=== PATIENT | male | born 1980 | race Caucasian/White ===

== ENCOUNTER 2022-08-09 20:40 | Emergency (ER) | payer BC ==
--- OUTSIDE RECORDS SUMMARY | 2022-08-09 20:54 | XMS REPORT | Continuity of Care Document ---
:1980 Author Organization [facility] t Address [address] [place] [address] Care Team Providers Name Role Phone Magda Chase Attending Clinician Unavailable Payers Payer Name Policy Type Policy Number Effective Date Expiration Date S ource [employer] [id number] 2020 00:00:00 Problems This patient has no known problems. Allergies, Adverse Reactions, Alerts This patient has no known allergies or adverse reactions. Social History Social Habit Start Date Stop Date Quantity Comments Source Sex Assigned At [address] [facility] Medications This patient has no known medications. Immunizations Ordered Immunization Filled Immunization Date Status Commen ts Source Name Name Covid-19 Vaccine 2020-06-[address] [facility] MRNA (PF) 12yr+ 00:00:00 Medical C enter (Pfizer/BioNTech)(IM M601) Covid-19 Vaccine 2020-05-[address] [facility] MRNA (PF) 12yr+ 00:00:00 Medical C enter (Pfizer/BioNTech)(IM M601) Procedures This patient has no known procedures. Plan of Care Planned Activity Planned Date Details Comments Source Future Scheduled 2025-10-[address] [facility] 00:00:00 (procedure) [code = [facility] [id number]] Future Scheduled 2022-06-[address] [facility] 00:00:00 (12+) [code = [facility] DEPRESSION SCREENING (12+)] Future Scheduled 2022-02-[address] [facility] 00:00:00 (#1) [code = Medical Center INFLUENZA VACCINE (#1)] Future Scheduled 2020-11-06 COVID-19 VACCINE (3 - [facility] 00:[facility]:00 Booster for Pfizer Medical C enter series) [code = COVID-19 VACCINE (3 - Booster for Pfizer series)] Future Scheduled 2000 DTAP/TDAP/TD VACCINES [facility] 00:00:00 (1 - Tdap) [code = Medical C enter DTAP/TDAP/TD VACCINES (1 - Tdap)] Future Scheduled 1999 HEPATITIS C SCREENING [facility] 00:00:00 [code = HEPATITIS C Medical Center SCREENING] Future Scheduled [address] [facility] Test 00:00:00 Counseling and Medical Cent[facility] r Screening (12+) [code = Tobacco Cessation Counseling and Screening (12+)] Encounters Start End Encounter Admission Attending Care Care Encounter Source Date/Time Date/Time Type Type Clinicians Facility Department ID 2021-06-29 Outpatient [facility] [id number] Common 13:10:34 Magda [id number] [facility] 2021-06-21 2021-06-21 Outpatient [facility] [id number] 13:34:07 13:34:07 [facility] 2020-06-08 2020-06-08 Outpatient [facility] [id number] [facility] 00:00:00 00:00:00 2020-05-20 2020-05-20 Outpatient [facility] [id number] [facility] 00:00:00 00:00:00 Results Test Description Test Time Test Comments Results Result Comments Source SARS-COV2/RT-PCR ([facility]) 2021-06-21 22:56:06 Test Item Value Reference Range Interpretation Comme nts SARS-COV2/RT-PCR (test code = 9206931) Negative Not Detected, N egative, See external report for linked test SARS-COV-2 PERFORMING LAB (test code = [facility] [id number]) Negative result for this test determines that SARS-CoV-2 RNA was not present in the specimen above the Limit of Detection (LOD). However, Negative results do not preclude SARS-CoV-2 infection and should not be used as the sole basis for treatment or patient management decisions. Negative results must be combined with clinical observations, patient history, and epidemiological information. A false negative result may occur if a specimen is improperly collected, transported or handled. A false negative result should be considered if patient's recent exposures or clinical presentation indicate that COVID-19 (SARS-CoV-2) is likely and diagnostic tests for other causes of illness are negative. Re-testing should be considered in cases of suspected false negatives.The limit of detection for this assay is 800 copies/mL.This SARS CoV-2 test is a real-time RT-PCR test intended for the qualitative detection of nucleic acid from SARS-CoV-2 in a nasopharyngeal swab specimen collected from individuals suspected of COVID-19 by their healthcare provider.This test has not been Food and Drug Administration (FDA) cleared or approved. This is a modified version of an approved Emergency Use Authorization (EUA) and is in the process of review by the FDA. Once authorized by the FDA, the issued EUA will be effective until the declaration that circumstances exist justifying the authorization of the emergency use ofin vitro diagnostic tests for detection and/or diagnosis of COVID-19 is terminated under Section 564(b)(2) of the Act or the EUA is revoked under Section 564(g) of the Act.Fact Sheet for Healthcare Prov iders:https://www.[employer]/sites/default/files/product/documents/Fact_Sheet_HC _Gwoklmnzb_Xeiw_TGLG-MnF-8.pdfFact Sheet for Healthcare Patients:https://www.[employer]/sites/default/files/product/docume nts/Dqfy_Sxeyg_Xmpoipzw_Baqp_NWLH-MeN-6.pdfPerforming Laboratory:[facility] [facility], [place] [address]LWPH-BFW9/RT-PCR ([facility])2020-05-13 23:42:00 Test Item Value Reference Range Interpretation Comments SARS-COV2/RT-PCR (test Negative Not Detected, Negative, code = [id number]) See external report for linked test SARS-COV-2 PERFORMING LAB [facility] (test code = [id number]) Negative result for this test determines that SARS-CoV-2 RNA was not present in the specimen above the Limit of Detection (LOD). However, Negative results do not preclude SARS-CoV-2 infection and should not be used as the sole basis for treatment or patient management decisions. Negative results must be combined with clinical observations, patient history, and epidemiological information. A false negative result may occur if a specimen is improperly collected, transported or handled. A false negative result should be considered if patient's recent exposures or clinical presentation indicate that COVID-19 (SARS-CoV-2) is likely and diagnostic tests for other causes of illness are negative. Re-testing should be considered in cases of suspected false negatives.The limit of detection for this assay is 100 copies/mL.This SARS CoV-2 test is a real-time RT-PCR test intended for the qualitative detection of nucleic acid from SARS-CoV-2 in a nasopharyngeal swab specimen collected from individuals suspected of COVID-19 by their healthcare provider.This test has not been Food and Drug Administration (FDA) cleared or approved. This is a modified version of an approved Emergency Use Authorization (EUA) and is in the process of review by the FDA. Once authorized by the FDA, the issued EUA will be effective until the declaration that circumstances exist justifying the authorization of the emergency use ofin vitro diagnostic tests for detection and/or diagnosis of COVID-19 is terminated under Section 564(b)(2) of the Act or the EUA is revoked under Section 564(g) of the Act.Testing was performed using the Vides SARS-CoV-2 assay.Fact Sheet for Healthcare Providers:https://www.molecular.vides/michael/RT_SAR S-JnK-0_XUC_Upll_Phkfw_62-828601.pdfFact Sheet for Healthcare Patients:https://www.molecular.vides/s al/CD_QXMK-RvJ-9_Uhvpmiv_Etnv_Ciirv_XE_44-166428A3.pdfPerforming Laboratory:[facility] [place] [address]?
[2022-08-09] MEDS ORDERED: ONDANSETRON 4 MG/2 ML VIAL ONE (22:59)
[2022-08-09] MEDS ORDERED: NA CHLORIDE 0.9% 1,000 ML ONE (22:59)
[2022-08-09 23:09] LABS: Urine Blood Negative (Negative); Urine Glucose Negative (Negative); Urine Protein Negative (Negative); Urine Specific Gravity >=1.030 (1.005-1.030)
[2022-08-09 23:21] LABS: Absolute Lymphocytes (CBC) 2.5 K/uL (0.7-4.9); Hematocrit 43.4 % (39.6-49.0); Lymphocytes % 29.2 % (15.3-44.8); MCV 81.9 fL (80-100); MPV 8.6 fL (7.6-11.3)
[2022-08-09 23:23] LABS: Urine Bacteria None Seen /HPF (<20); Urine Mucus Slight /HPF (None Seen); Urine RBC None Seen /HPF (None Seen)
[2022-08-09 23:36] LABS: Albumin 4.4 g/dL (3.4-5.0); Bilirubin Total 0.7 mg/dL (0.2-1.0); Potassium 3.8 mmol/L (3.5-5.1); Protein, Total 7.8 g/dL (6.4-8.2)
--- NOTE | 2022-08-10 14:01 | RAD REPORT ---
EXAM DESCRIPTION: CT - Abdomen Pelvis W Contrast - 08/10/2022 2:18 am CLINICAL HISTORY: The patient is 42 years old and is Male; rectal pain [facility] MAIN TECHNIQUE: Axial computed tomography images of the abdomen and pelvis with intravenous contrast. S agittal and coronal reformatted images were created and reviewed. This CT exam was performed using one or more of the following dose reduction techniques: automated exposure control, adjustment of t he mA and/or kV according to patient size, and/or use of iterative reconstruction technique. COMPARISON: 12/10/2015 CT abdomen pelvis with contrast (images only, report unavailable) FINDINGS: LUNG BASES: Unremarkable. No mass. No consolidation. ABDOMEN: LIVER: Indeterminate 1.7 cm low-attenuation focus in the posterior dome of the right hepatic lobe. No additional focal hepatic parenchymal abnormality. GALLBLADDER AND BILE DUCTS: Unremarkable. No calcified stones. No ductal dilation. PANCREAS: Unremarkable. No mass. No ductal dilation. SPLEEN: Incidental splenule noted. No splenomegaly. ADRENALS: Unremarkable. No mass. KIDNEYS AND URETERS: Unremarkable. No solid mass. No hydronephrosis. STOMACH AND BOWEL: Oral contrast demonstrated within the distal small bowel and ascending through proximal descending colon. No abnormal bowel dilatation or mucosal thickening. PELVIS: APPENDIX: No findings to suggest acute appendicitis. BLADDER: Unremarkable. No mass. REPRODUCTIVE: Unremarkable as visualized. ABDOMEN and PELVIS: INTRAPERITONEAL SPACE: Unremarkable. No free air. No significant fluid collection. BONES/JOINTS: No acute fracture. No dislocation. SOFT TISSUES: Unremarkable. No abnormal perineal masses, fluid collections, or obvious inflammatory changes, though ther e is a subtle serpiginous soft tissue attenuating focus along the left anterolateral margin of the an us (axial images 91 and 92/103), which appears similar on 2016 reference exam. VASCULATURE: Unremarkable. No abdominal aortic aneurysm. LYMPH NODES: Unremarkable. No enlarged lymph nodes. IMPRESSION: 1. No abnormal perineal masses, fluid collections, or obvious inflammatory changes, th ough there is a subtle serpiginous soft tissue attenuating focus along the left anterolateral margin of the anus (axial images 91 and 92/103), which appears similar on 2016 reference exam. Appearance is nonspecific and could reflect an anal fissure or fistula. Clinical correlation recommended. 2. Otherwise, no acute abnormality of the abdomen or pelvis. 3. Indeterminate 1.7 cm low-attenuation focus in the posterior dome of the right hepatic lobe, not readily appreciated on 2016 exam. Although this may reflect a hepatic hemangioma, further characteriz ation by nonemergent hepatic mass protocol MRI or CT recommended. Electronically signed by: Randy Lyn MD 08/10/2022 1:56 AM FAMILY DAY CARE PROVIDER Due to temporary technical issues with the PACS/Fluency reporting system, reports are being signed by the in house radiologists without review as a courtesy to insure prompt reporting. The interpreting radiologist is fully responsible for the content of the report.
--- NOTE | 2022-08-25 15:06 | ER ---
Nurse's Notes [facility] Name: Dung Saravia Age: 42 yrs Sex: Male : 1980 Arrival Date: 08/09/2022 Time: 20:45 Bed 25 Private MD: Diagnosis: Anorectal fistula Presentation: 08/09 21:35 Chief complaint: Patient states: he is having pain and rectal bleeding for several bb months has used OTC medications with no relief. Coronavirus screen: At this time, the client does not indicate any symptoms associated with coronavirus-19. Ebola Screen: No symptoms or risks identified at this time. Initial Sepsis Screen: Does the patient meet any 2 criteria? No. Patient's initial sepsis screen is negative. Does the patient have a suspected source of infection? No. Patient's initial sepsis screen is negative. Risk Assessment: Do you want to hurt yourself or someone else? Patient reports no desire to harm self or others. Onset of symptoms was March 2022. 21:35 Method Of Arrival: Ambulatory bb 21:35 Acuity: SHABBIR 3 bb Triage Assessment: 21:36 General: Appears in no apparent distress. uncomfortable, Behavior is calm, cooperative. bb Pain: Complains of pain in rectum. Neuro: Level of Consciousness is awake, alert, obeys commands, Oriented to person, place, time, situation. Cardiovascular: Capillary refill < 3 seconds Patient's skin is warm and dry. Respiratory: Respiratory effort is unlabored. GI: Reports rectal bleeding. Derm: Skin is pink, warm \T\ dry. Musculoskeletal: Circulation, motion, and sensation intact. 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 - Social history:: Smoking status: Patient denies any tobacco usage or history of. Screenin/09 02:29 [facility] ED Fall Risk Assessment (Adult) Score/Fall Risk Level 0 - 2 = Low Risk. Abuse as6 screen: Denies threats or abuse. Denies injuries from another. Nutritional screening: No deficits noted. Tuberculosis screening: No symptoms or risk factors identified. Assessment: 02:31 General: pt even and steady gait at discharge, verbalized understanding on discharge as6 instructions . Vital Signs: 08/09 21:35 BP 124 / 89; Pulse 66; Resp 16 S; Temp 98.1(O); Pulse Ox 99% on R/A; Weight 77.56 kg bb (R); Height 5 ft. 10 in. (R); Pain 7/10; 22:30 BP 129 / 61; Pulse 65; Resp 18 S; Pulse Ox 100% on R/A; as6 08/10 00:00 BP 131 / 74; Pulse 81; Resp 16 S; Pulse Ox 99% on R/A; as6 01:45 BP 120 / 75; Pulse 68; Resp 18 S; Pulse Ox 100% on R/A; as6 08/09 21:35 Body Mass Index 24.54 (77.56 kg, 177.8 cm) bb 08/09 21:35 Pain Scale: Adult bb ED Course: 08/09 20:45 Patient arrived in ED. jj6 21:09 Clinton Kang MD is Attending Physician. bs3 21:09 Abraham Martel PA is PHCP. cp 21:12 Clinton Kang MD is Attending Physician. cp 21:36 Triage completed. bb 21:36 Arm band placed on Patient placed in an exam room, on a stretcher. bb 21:43 David Guardado, RN is Primary Nurse. as6 23:09 CBC with Diff Sent. bc6 23:09 CMP Sent. bc6 23:09 Lipase Sent. bc6 23:09 Urine Microscopic Only Sent. bc6 23:09 Inserted saline lock: 20 gauge in right antecubital area, using aseptic technique. bc6 08/10 01:38 CT Abd/Pelvis - PO and IV Contrast: give oral contrast In Process Unspecified. EDMS 02:15 Anson Yancey MD is Referral Physician. cp 02:29 Placed in gown. Bed in low position. Call light in reach. Side rails up X2. as6 02:30 No provider procedures requiring assistance completed. IV discontinued, intact, as6 bleeding controlled, No redness/swelling at site. Pressure dressing applied. Administered Medications: 08/09 23:15 Drug: NS 0.9% IV 1000 ml Route: IV; Rate: 1 bolus; Site: right antecubital; bb 08/10 02:29 Follow up: Response: No adverse reaction; IV Status: Completed infusion; IV Intake: as6 1000ml 08/09 23:15 Drug: Ondansetron IVP 4 mg Route: IVP; Site: right antecubital; linden 08/10 02:29 Follow up: Response: No adverse reaction as6 Medication: 02:29 VIS not applicable for this client. as6 Intake: 02:29 IV: 1000ml; Total: 1000ml. as6 Outcome: 02:18 Discharge ordered by . jagdish 02:31 Discharged to home ambulatory. as6 02:31 Condition: stable 02:31 Discharge instructions given to patient, Instructed on discharge instructions, follow up and referral plans. medication usage, Demonstrated understanding of instructions, follow-up care, medications, Prescriptions given X 3. 02:33 Patient left the ED. as6 Signatures: Dispatcher [employer] EDMS Aracely Parker, RN RN bb Abraham Martel PA PA cp Jeffries, Jennifer jj6 David Guardado RN RN as6 Clinton Kang MD MD bs3 Amita Martinez [facility]
--- NOTE | 2022-08-25 15:06 | EDPHYS ---
Physician Documentation [facility] Name: Dung Saravia Age: 42 yrs Sex: Male : 1980 Arrival Date: 08/09/2022 Time: 20:45 Bed 25 Private MD: ED Physician Clinton Kang HPI: 08/09 22:50 This 42 yrs old Male presents to ER via Ambulatory with complaints of Rectal Bleeding, cp Rectal Pain. 22:50 The patient presents to the emergency department with pain in the rectal area, that is cp moderate. Onset: The symptoms/episode began/occurred last month, with rectal bleeding over the past week. Context: the patient has no known special context relating to the rectal area complaint(s). Associate signs and symptoms: Pertinent positives: lower GI bleeding, bright red, Pertinent negatives: abdominal pain, constipation, diarrhea, fever. 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 - Social history:: Smoking status: Patient denies any tobacco usage or history of. ROS: 22:55 Constitutional: Negative for body aches, chills, fever, poor PO intake. cp 22:55 Eyes: Negative for injury, pain, redness, and discharge. cp 22:55 ENT: Negative for drainage from ear(s), ear pain, sore throat, difficulty swallowing, difficulty handling secretions. 22:55 Respiratory: Negative for cough, shortness of breath, wheezing. 22:55 Abdomen/GI: Positive for rectal pain, rectal bleeding, Negative for abdominal pain, diarrhea, constipation. 22:55 Back: Negative for pain at rest, pain with movement. 22:55 Neuro: Negative for altered mental status, dizziness, headache, weakness. 22:55 All other systems are negative. Exam: 23:00 Constitutional: The patient appears in no acute distress, alert, awake, cp non-diaphoretic, non-toxic, well developed, well nourished. 23:00 Head/Face: Normocephalic, atraumatic. cp 23:00 Eyes: Periorbital structures: appear normal, Conjunctiva: normal, no exudate, no injection, Sclera: no appreciated abnormality, Lids and lashes: appear normal, bilaterally. 23:00 ENT: External ear(s): are unremarkable, Nose: is normal, Mouth: Lips: moist, Oral mucosa: moist, Posterior pharynx: Airway: no evidence of obstruction, patent. 23:00 Chest/axilla: Inspection: normal. 23:00 Cardiovascular: Rate: normal, Rhythm: regular. 23:00 Respiratory: the patient does not display signs of respiratory distress, Respirations: normal, no use of accessory muscles, no retractions, labored breathing, is not present, Breath sounds: are clear throughout, no decreased breath sounds, no stridor, no wheezing. 23:00 Abdomen/GI: Inspection: abdomen appears normal, Palpation: abdomen is soft and non-tender, in all quadrants. 23:00 : Rectal exam: hemorrhoid(s), are not appreciated, mass, is not appreciated, marked pain to palpation, no abscess palpated. Vital Signs: 21:35 BP 124 / 89; Pulse 66; Resp 16 S; Temp 98.1(O); Pulse Ox 99% on R/A; Weight 77.56 kg bb (R); Height 5 ft. 10 in. (R); Pain 7/10; 22:30 BP 129 / 61; Pulse 65; Resp 18 S; Pulse Ox 100% on R/A; as6 03/09 00:00 BP 131 / 74; Pulse 81; Resp 16 S; Pulse Ox 99% on R/A; as6 01:45 BP 120 / 75; Pulse 68; Resp 18 S; Pulse Ox 100% on R/A; as6 08/09 21:35 Body Mass Index 24.54 (77.56 kg, 177.8 cm) bb 08/09 21:35 Pain Scale: Adult bb MDM: 08/09 21:34 Patient medically screened. bs3 08/10 00:00 Differential diagnosis: hemorrhoids, fissure, abscess, pilonidal cyst, condyloma. cp 02:17 Data reviewed: vital signs, nurses notes, lab test result(s), radiologic studies, CT cp scan. 02:17 Consideration of Admission/Observation Escalation of care including cp admission/observation considered. Counseling: I had a detailed discussion with the patient and/or guardian regarding: the historical points, exam findings, and any diagnostic results supporting the discharge/admit diagnosis, lab results, radiology results, the need for outpatient follow up, a general surgeon, to return to the emergency department if symptoms worsen or persist or if there are any questions or concerns that arise at home. 08/09 22:44 Order name: CBC with Diff; Complete Time: 00:13 cp 08/10 00:13 Interpretation: Reviewed. cp 08/09 22:44 Order name: CMP; Complete Time: 00:13 cp 08/10 00:13 Interpretation: Normal except: GFR 80. cp 08/09 22:44 Order name: Lipase; Complete Time: 00:13 cp 08/09 22:44 Order name: Urine Microscopic Only; Complete Time: 00:13 cp 08/09 23:09 Order name: Urine Dipstick-Ancillary; Complete Time: 00:13 EDMS 08/10 00:13 Interpretation: Reviewed. cp 08/09 22:44 Order name: CT Abd/Pelvis - PO and IV Contrast: give oral contrast cp 08/09 22:44 Order name: IV Saline Lock; Complete Time: 23:08 cp 08/09 22:44 Order name: Labs collected and sent; Complete Time: 23:08 cp 08/09 22:44 Order name: Urine Dipstick-Ancillary (obtain specimen); Complete Time: 23:08 cp Administered Medications: 08/09 23:15 Drug: NS 0.9% IV 1000 ml Route: IV; Rate: 1 bolus; Site: right antecubital; 08/10 02:29 Follow up: Response: No adverse reaction; IV Status: Completed infusion; IV Intake: as6 1000ml 08/09 23:15 Drug: Ondansetron IVP 4 mg Route: IVP; Site: right antecubital; 08/10 02:29 Follow up: Response: No adverse reaction as6 Disposition Summary: 08/10/22 02:18 Discharge Ordered Location: Home cp Problem: new cp Symptoms: are unchanged cp Condition: Stable cp Diagnosis - Anorectal fistula cp Followup: cp - With: Anson Yancey MD - When: 1 - 2 days - Reason: Recheck today's complaints Discharge Instructions: - Discharge Summary Sheet cp - Anal Fistula cp Forms: - Medication Reconciliation Form cp - Thank You Letter cp - Antibiotic Education cp - Prescription Opioid Use cp Prescriptions: - Cipro 500 mg Oral Tablet - take 1 tablet by ORAL route every 12 hours for 10 days; 20 tablet; Refills: 0, cp Product Selection Permitted - Metronidazole 500 mg Oral Tablet - take 1 tablet by ORAL route every 8 hours; 30 tablet; Refills: 0, Product cp Selection Permitted - Anusol-HC 25 mg Rectal Suppository - insert 1 suppository by RECTAL route every 12 hours As needed; 20 suppository; cp Refills: 0, Product Selection Permitted Signatures: Dispatcher [employer] Aracely Bearden RN RN bb Abraham Martel PA PA Clinton Adams MD MD bs3 David Guardado RN as6 Corrections: (The following items were deleted from the chart) 08/11 01:26 08/09 22:50 Onset: The symptoms/episode began/occurred last month, cp cp
== END 2022-08-10 02:33 | disposition home or self-care (01) ==
LOC: ER 20:40
DX: K60.5 Anorectal fistula (principal)
CPT/HCPCS: 96361; 85025; 36415; 83690; 80053; 74177; 96374; 99284; Q9967; J2405; J7030; 81003; 81015